=== PATIENT | female | born 1955 | race Two or more races ===

== ENCOUNTER 2023-07-07 18:52 | Emergency (ER) | payer OTHER ==
[~2023-07-07] VITALS: Ht 162.6 cm; Wt 115.0 kg
[2023-07-07 20:12] LABS: Alanine Aminotransferase 214 U/L (7-40); Albumin 3.9 g/dL (3.2-4.8); Alkaline Phosphatase 559 U/L (46-116); Anion Gap 7 (5-15); Aspartate Aminotransferase 302 U/L (13-40); Carbon Dioxide 25 mmol/L (20-30); Chloride 105 mmol/L (98-107); Glucose 152 mg/dL (74-106); Potassium 3.8 mmol/L (3.5-5.1); Sodium 137 mmol/L (136-145)
[2023-07-07 20:13] LABS: Bilirubin, Total 4.1 mg/dL (0.2-1.0); Total Protein 6.2 g/dL (5.7-8.2)
[2023-07-07 20:17] LABS: Basophils # (auto) 0 10 ^3/uL (0-0.2); Basophils % (auto) 0.2 % (0.0-2.0); Eosinophils # (auto) 0.1 10 ^3/uL (0-0.8); Eosinophils % (auto) 0.7 % (0.0-7.0); Hematocrit 43.9 % (36.0-46.0); Hemoglobin 14.8 g/dL (12.2-16.2); Lymphocytes # (auto) 0.7 10 ^3/uL (0.4-5.4); Lymphocytes % (auto) 5.2 % (10.0-50.0); Mean Corpuscular Hemoglobin 30.5 pg (28.0-32.0); Mean Corpuscular Hgb Conc. 33.9 g/dL (32.0-36.0); Mean Corpuscular Volume 90.1 fL (80.0-100.0); Monocytes # (auto) 0.4 10 ^3/uL (0-1.3); Monocytes % (auto) 3.1 % (0.0-12.0); Neutrophils # (auto) 11.8 10 ^3/uL (1.6-8.6); Neutrophils % (auto) 90.8 % (37.0-80.0); Red Blood Cells 4.87 10^6/uL (4.0-5.20); Red Cell Distribution Width 13.7 % (11.8-14.3)
[2023-07-07 20:43] LABS: Blood Urea Nitrogen < 5 mg/dL (9-23)
[2023-07-07 20:45] VITALS: PULSE 76; RESP 16; O2SAT 94
[2023-07-07] MEDS ORDERED: MORPHINE SULFATE 4 MG/ML SYR/VIAL ONE (20:57)
[2023-07-07] MEDS ORDERED: ONDANSETRON HCL 4 MG/2 ML VIAL ONE (20:58)
[2023-07-07] MEDS ORDERED: ONDANSETRON HCL 4 MG/2 ML VIAL IV ONE (21:00)
[2023-07-07] MEDS ORDERED: MORPHINE SULFATE 4 MG/ML SYR/VIAL IV ONE (21:00)
[2023-07-08] MEDS ORDERED: MORPHINE SULFATE 4 MG/ML SYR/VIAL IV ONE (00:30)
[2023-07-08] MEDS ORDERED: ONDANSETRON HCL 4 MG/2 ML VIAL IV ONE ×2 (00:30→17:15)
[2023-07-08 07:30] VITALS: PULSE 68; RESP 21; O2SAT 93
[2023-07-08 08:31] LABS: Urine Bacteria NONE SEEN /hpf (None Seen); Urine Blood 2+ /uL (Negative); Urine Clarity HAZY (Clear); Urine Color Brown (Yellow); Urine Hyaline Cast FEW /lpf (0 - 2); Urine Mucus MODERATE (None Seen); Urine Protein, UAD 1+ (Negative); Urine Specific Gravity 1.031 (1.001-1.035); Urine Urobilinogen >12.0 mg/dL (Negative); Urine WBC 28 /hpf (0 - 5); Urine WBC Clumps PRESENT /hpf (None Seen); Urine pH 5.5 (5.0-8.0)
[2023-07-08] MEDS ORDERED: MORPHINE SULFATE INJ 2 MG/ml SYRG IV PRN (11:30)
[2023-07-08] MEDS ORDERED: HYDROcodone-ACET 5/325MG TAB PO PRN (11:30)
[2023-07-08] MEDS ORDERED: SODIUM CHLORIDE 0.9% 1,000 ML IV ONE (11:30)
[2023-07-08] MEDS ORDERED: HYDROmorphone HCL 2 MG/ML VL/or syr IV ONE (17:15)
[2023-07-08 17:17] VITALS: BP 115/59; PULSE 78; RESP 12; TEMP 98.1; O2SAT 96
== END 2023-07-08 17:51 | disposition short-term general hospital (02) ==
LOC: EDBD 18:52 → ER 18:52
DX: R07.89 Other chest pain (principal); R74.01 Elevation of levels of liver transaminase levels; R74.8 Abnormal levels of other serum enzymes; R79.89 Other specified abnormal findings of blood chemistry; K76.0 Fatty (change of) liver, not elsewhere classified; I10 Essential (primary) hypertension; Z98.890 Other specified postprocedural states
CPT/HCPCS: 36415; 71045; 74176; 74181; 80053; 81001; 83690; 83880; 84484; 85025; 93005; 96361; 96374; 96375; 96376; 99285; J2270; J2405; J7030